=== PATIENT | male | born 1950 | race Caucasian/White ===

== ENCOUNTER 2025-03-31 15:39 | Outpatient (AMB) | payer MEDICARE, OTHER, SELFPAY ==
--- NOTE | 2025-03-31 15:41 | AM.OFFWIN_ITS ---
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 - The injury occurred four days ago when the patient tripped over a belt on the floor, causing the left foot to flex significantly. - The patient reports significant bruisi ng and tenderness in the joint area of the big toe of the left foot. - There is a suspicion of a fracture due to the presence of blood in the area, although no prior imaging has been conducted. - The patient has not wrapped the foot o r used any supportive devices since the injury. - he has been taking ibuprofen and ice, the pain continues. - Pain is worse when flexing foot Physical Exam General: Cooperative, healthy appearing, comfortable, no acute distress and well developed Orientation: Patient oriented x3 Limitations: No limitations Head: Normal to inspection Ears: Hearing grossly normal bilaterally Nose: Normal External nose present Face and sinus: Normal facial exam Mouth: normal, moist oral mucosa Eyes: Appearance normal, both eyes and all related structures Neck: Normal visual inspection and Yes full ROM Respiratory: Normal respiratory effort and able to speak in complete sentences. Skin: no rashes or lesions noted Neuro: Patient oriented x3 Extremities: moving all extremities normally, left lateral dorsal aspect of left foot has significant ecchymosis, TTP on MTP, NVI all toes, ROM full all toes, RO M normal left foot. PFSH Social History Patient Tobacco Use Status: Former Tobacco user Review of Systems Const All systems reviewed & are unremarkable except as noted in HPI and below Physical Exam Vital Signs: Last Vital Signs Temp 98.3 F 03/31/25 15:43 Pulse 82 03/31/25 15:43 BP 114/62 03/31/25 15:43 Pulse Ox 97 03/31/25 15:43 Oxygen Delivery Method Room Air 03/31/25 15:43 BMI result Body Mass Index 26.0 Assessment & Plan Assessment & Plan (1) Acute foot pain: Code(s): M79.673 - Pain in unspecified foot Qualifiers: Laterality: left Qualified Code(s): M79.672 - Pain in left foot Plan: Patient was informed and verbally consented to the use of an ambient scribe for clinic note documentation during this visit 1. Acute Foot Pain - Plan to obtain an x-ray of the left foot to assess for possible fracture. - My intepretation of XR is possible sesamoid bone fx however Rads read was no acute fx or other issue. - Gave patient a postoperative shoe or boot to minimize pain and prevent further injury. Advised to wean off over the next few weeks and do twice daily ROM excercises. -Rest, Ice, ibuprofen. (2) Injury of foot, left: Code(s): S99.922A - Unspecified injury of left foot, initial encounter Qualifiers: Encounter type: initial encounter Qualified Code(s): S99.922A - Unspecified injury of left foot, initial encounter Plan: as above Orders: Orders XR foot LT min 3V Today M79.673 - Pain in unspecified foot, S99.922A - Unspecified injury of left foot, initial encounter Coding Level of Care Code New Pt Level 4 (96247) Diagnoses Acute pain of left foot M79.672 Laterality: left Injury of left foot, initial encounter S99.922A Encounter type: initial encounter
[2025-03-31 15:43] VITALS: BP 114/62; PULSE 82; TEMP 36.8; O2SAT 97; BMI 26.0
== END 2025-03-31 16:43 | disposition home or self-care (01) ==
PROVIDERS: Visit Provider Physician Assistant
DX: M79.672 Pain in left foot (principal); S99.922A Unspecified injury of left foot, initial encounter

== ENCOUNTER 2025-03-31 15:39 | Outpatient (REF) | payer MEDICARE, OTHER, SELFPAY ==
--- NOTE | ~2025-03-31 | XR_ITS ---
EXAMINATION: XR FOOT, LEFT CLINICAL INFORMATION: M79.673 - Pain in unspecified foot COMPARISON: None available. TECHNIQUE: AP, lateral, and oblique views of the left foot. FINDINGS: There is mild osteopenia. There is no fracture, dislocation, or suspicious bone lesion. There is normal alignment. There is a healed fracture of the proximal phalanx of the fifth digit. There are mild degenerative changes in the first MTP joint, interphalangeal joints, and intertarsal joints. There is mild flattening of the normal plantar arch. There are mild degenerative changes in the ankle joint and subtalar joints. There is a small plantar calcaneal spur. There is no soft tissue abnormality. XR/XR foot LT min 3V IMPRESSION: No acute findings of the left foot. Electronically signed by: Dawson Rogers MD 03/31/2025 04:23 PM EDT
--- OUTSIDE RECORDS SUMMARY | 2025-03-31 16:02 | XMS_ITS | Patient Health Record ---
Author Organization [facility] [email or web address] [facility] Address [address] [place] [address] Care Team Providers Care Inlayer Name Role Phone Yong Becker Primary Care Provider Yanira, Milvia Unavailable [phone] Ajay III, Desmond Unavailable [phone] Allergies No Known Allergies Results Component Value Reference Range Notes CBC (INCLUDES DIFF/PLT) Reviewed date:08/23/2024 12:03:24 PM Interpretation: Performing Lab:[place], [facility]-[id number] [place] [facility], [id number] [address] DR[address] Alison Parisi Notes/Report: FASTING FASTING FASTING WHITE BLOOD CELL COUNT 6.5 3.8-10.8 Thousand/ uL RED BLOOD CELL COUNT 5.52 4.20-5.80 Million/uL HEMOGLOBIN 17.0 13.2-17.1 g/dL HEMATOCRIT 51.6 38.5-50.0 % MCV 93.5 80.0-100.0 fL MCH 30.8 27.0-33.0 pg MCHC 32.9 32.0-36.0 g/dL not clinically significant; however, it should be value (in the range of 30 to 32 g/dL) is most likely red cell parameters and the patient's clinical For adults, a slight decrease in the calculated MCHC condition. interpreted with caution in correlation with other RDW 12.7 11.0-15.0 % PLATELET COUNT 193 140-400 Thousand/uL MPV 10.2 7.5-12.5 fL ABSOLUTE NEUTROPHILS [phone] cells/uL ABSOLUTE LYMPHOCYTES 1735 705-3146 cells/uL ABSOLUTE MONOCYTES 637 200-950 cells/uL ABSOLUTE EOSINOPHILS 221 15-500 cells/uL ABSOLUTE BASOPHILS 72 0-200 cells/uL NEUTROPHILS 55.4 LYMPHOCYTES 30.3 MONOCYTES 9.8 EOSINOPHILS 3.4 BASOPHILS 1.1 COMPREHENSIVE METABOLIC PANE L Reviewed date:08/24/2024 02:25:36 PM Interpretation: Performing Lab:[facility] [facility] [employer] [facility]-[id number] [place] [facility], [id number] [address] DR[address] Alison Parisi Notes/Report: FASTING FASTING FASTING GLUCOSE 81 65-99 mg/dL Fasting referen ce interval UREA NITROGEN (BUN) 17 7-25 mg/dL CREATININE 0.81 0.70-1.28 mg/dL EGFR 92 > OR = 60 mL/min/1.73m2 BUN/CREATININE RATIO SEE NOTE: 6-22 (calc) reference range. Not Reported: BUN and Creatinine are within SODIUM 139 135-146 mmol/L POTASSIUM 4.7 3.5-5.3 mmol/L CHLORIDE 101 98-110 mmol/L CARBON DIOXIDE 29 20-32 mmol/L CALCIUM 9.5 8.6-10.3 mg/dL PROTEIN, TOTAL 6.8 6.1-8.1 g/dL ALBUMIN 4.4 3.6-5.1 g/dL GLOBULIN 2.4 1.9-3.7 g/dL (calc) ALBUMIN/GLOBULIN RATIO 1.8 1.0-2.5 (calc) BILIRUBIN, TOTAL 0.9 0.2-1.2 mg/dL ALKALINE PHOSPHATASE 73 35-144 U/L AST 19 10-35 U/L ALT 21 9-46 U/L LIPID PANEL Reviewed date:08/24/2024 02:25:36 PM Interpretation: Performing Lab:[facility]-[id number], [id number] [address] DR[address] Alison Parisi Notes/Report: FASTING FASTING FASTING CHOLESTEROL, TOTAL 123 <200 mg/dL HDL CHOLESTEROL 42 > OR = 40 mg/dL TRIGLYCERIDES 66 <150 mg/dL LDL-CHOLESTEROL 66 Reference range: <100 LDL-C is now calculated using the Bharathi-Armas with > or = 2 CHD risk factors. (http://education.Physician Software Systems/faq/RCV193) Bharathi SS et al. ESE. 2013;310(19): 4986-0719 <70 mg/dL for patients with CHD or diabetic patients better accuracy than the Friedewald equation in the calculation, which is a validated novel method providing Desirable range <100 mg/dL for primary prevention; estimation of LDL-C. CHOL/HDLC RATIO 2.9 <5.0 (calc) NON HDL CHOLESTEROL 81 <130 mg/dL (calc) For patients with diabetes plus 1 major ASCVD risk (LDL-C of <70 mg/dL) is considered a therapeutic factor, treating to a non-HDL-C goal of <100 mg/dL option. PSA, TOTAL WITH REFLEX TO PS A, FREE (REFL) Reviewed date:08/24/2024 02:25:36 PM Interpretation: Performing Lab:[facility]-[id number] [facility], [id number]- [address] Alison Parisi Notes/Report: FASTING PSA, TOTAL 1.1 < OR = 4.0 ng/mL standardized against the equimolar PSA standard. assay methods cannot be used interchangeably. PSA absence of disease. The Total PSA value from this assay system is levels, regardless of value, should not be PSA was performed using the Nurys Den (Siemens assay). Comparison of serial PSA results should be interpreted with this fact in mind. The test result will be approximately 20% higher when compared to the WHO-standardized Total PSA interpreted as absolute evidence of the presence or Immunoassay method. Values obtained from different Reason For Referral No Information Medications Medication SIG (Take, Route, Frequency, Duration) Notes Start Date End Date Status Tadalafil 10 MG 1 tablet as needed Orally Once a day for 30 days 09/05/2024 Active Fluticasone Propionate 50 MCG/ACT SPRAY SPRAY 1 SPRAY INTO EACH NOSTRIL EVERY DAY FOR 30 DAYS Nasally Twice a day for 90 days Active LORazepam 1 MG 1 tablet at bedtime as needed Orally Once a day for 30 days prn 03/22/2024 Active Metoprolol Succinate ER 25 MG 1 tablet Orally Once a day Active Meloxicam 15 MG TAKE 1 TABLET BY JARAD TH EVERY DAY Oral for 30 Days Not-Taking Atorvastatin Calcium 40 MG 1 tablet Orally Once a day Active Lisinopril 10 MG 1 tablet Orally Once a day Active Immunizations Vaccine Route Administration Date Status Comme nts Administered Elsewhere, COVI D-19 Spikevax Unknown 07/21/2024 Administered Administered Elsewhere, RSV Arexvy Unknown 09/11/2023 A dministered COVID-19 Vaccine Moderna 1st dose Unknown 07/14/2021 Ad ministered COVID-19 Vaccine Moderna 1st dose Unknown 12/23/2021 Ad ministered Influenza (Fluad), inactivat ed (IIV), subunit, adjuvanted, for intramuscular use Unknown 05/22/2024 Administered Social History Tobacco Use: Social History Observation Description Date Details (start date - stop date) Former Smoker NA - NA Tobacco Use/Smoking Question Answer Notes Are you a nonsmoker Alcohol Screen (Audit C) Question Answer Notes Did you have a drink contain ing alcohol in the past year? Yes How often did you have a dri nk containing alcohol in the past year? 4 or more times a week (4 points) How many drinks did you have on a typical day when you were drinking in the past year? 1 or 2 drinks (0 point) How often did you have 6 or more drinks on one occasion in the past year? Never (0 point) Points 4 Interpretation Positive Sexual History Question Answer Notes Had sex in the past 12 months (vaginal, oral, or anal)? No (patient Portal Have you ever had a Sexually transmitted disease ? No (patient Portal Tobacco Control (Standard) Question Answer Notes Tobacco use: Former smoker How long has it been since you last smoked? Hortenciaa ter than 10 years Section Notes: Screenings done by Chela Muñoz 08/14/2021 11:03:20 AM > Brandon Guerrero 08/12/2022 09:39:43 AM > Screenings done by Chela Muñoz 08/14/2021 11:03:20 AM > Screenings done by Chela Muñoz 08/14/2021 11:03:20 AM > Brandon Guerrero 08/12/2022 09:39:43 AM > Screenings done by Chela Muñoz 08/14/2021 11:03:20 AM > Brandon Guerrero 08/12/2022 09:39:43 AM > Screenings done by Chela Muñoz 08/14/2021 11:03:20 AM > Screenings done by Chela Muñoz 08/14/2021 11:03:20 AM > Screenings done by Chela Muñoz 08/14/2021 11:03:20 AM > Screenings done by Chela Muñoz 08/14/2021 11:03:20 AM > Screenings done by Chela Muñoz 08/14/2021 11:03:20 AM > Brandon Guerrero 08/12/2022 09:39:43 AM > Problems Problem Type SNOMED Code ICD Code Onset Dates Problem Status W/U Status Risk Notes Problem Mixed hyperlipidemia (850066313) Mixed hyperlipidemia (E78.2) Active confirmed Problem Insomnia (987848049) Insomnia, unspecified (G47.00) Active confirmed Problem Sedative, hypnotic or anxiolytic dependence, 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 Problem 744948253 Chronic kidney disease, stage 1 (N18.1) Inactive confirmed Problem Seasonal allergic rhinitis (322468630) Seasonal allergic rhinitis, unspecified trigger (J30.2) Active confirmed Problem Essential hypertension (32729369) Essential hypertension (I10) Active confirmed Problem Cataract (587378958) Cataract (H26.9) Active confirmed Problem 774391878 Erectile disorde r (N52.9) Active confirmed Vital Signs Heart Rate 72 /min 09/05/2024 Corey Belcher 09/05/2024 08:42:24 AM EST > Temperature 97.9 degrees Fahrenheit 09/05/2024 Florencia Díaz 09/05/2024 08:42:24 AM EST > Respiratory Rate 16 /min 09/05/2024 Florencia Belcher 09/05/2024 08:42:24 AM EST > Blood pressure diastolic 67 mm Hg 09/05/2024 Florencia Muhammad 09/05/2024 08:42:24 AM EST > Oximetry 97 % 09/05/2024 Corey Belcher 09/05/2024 08:42:24 AM EST > Height 72 inches 09/05/2024 Corey Belcher 09/05/2024 08:42:24 AM EST > Blood pressure systolic 116 mm Hg 09/05/2024 Florencia Díaz 09/05/2024 08:42:24 AM EST > Weight 191 lbs 09/05/2024 Corey Belcher 09/05/2024 08:42:24 AM EST > BMI 25.9 kg/m2 09/05/2024 Corey Belcher 09/05/2024 08:42:24 AM EST > Encounters Encounter Location Date Provider [facility] [address] [place] [address] 09/05/2024 Milvia Doyle Mixed hyperlipidemia E78.2 ; Essential hypertension I10 ; Seasonal allergic rhinitis, unspecified trigger J30.2 ; Erectile disorder N52.9 ; Cataract H26.9 and Insomnia, unspecified G47.00 [facility] [address] [place] [address] [address] [place] [address] 08/22/2024 Desmond Ajay III Mixed hyperlipidemia E78.2 and Screening for prostate cancer Z12.5 Assessments Encounter Date Diagnosis (ICD Code) Assessment Notes Treatment Notes Treatment Clinical Notes Section Notes 09/05/2024 Mixed hyperlipidemia (ICD-10 - E78.2) Stable on Atorvastatin Calcium 40 MG Tablet 1 tablet Orally Once a day. Lipid panel reviewed, all at goal. 09/05/2024 Essential hypertension (ICD-10 - I10) Stable on Lisinopril 10 MG Tablet 1 tablet Orally Once a day, Metoprolol Succinate ER 25 MG Tablet Extended Release 24 Hour 1 tablet Orally Once a day. cont present management. Low salt diet, DASH diet, reduced saturated fat, Lifestyle interventions. 08/22/2024 Mixed hyperlipidemia (ICD-10 - E78.2) 08/22/2024 Screening for prostate cancer (ICD-10 - Z12.5) 09/05/2024 Seasonal allergic rhinitis, unspecified trigger (ICD-10 - J30.2) Stable. Refill sent for Fluticasone Propionate 50 MCG/ACT Suspension SPRAY SPRAY 1 SPRAY INTO EACH NOSTRIL EVERY DAY FOR 30 DAYS Nasally Twice a day. Instructed to avoid allergy triggers, Avoid yard work because it can stir up both pollen and mold. Avoid smoking or allow others to smoke around you Avoid use aerosol sprays, cleaning products, or perfumes. If pollen is one of your triggers, close your house and car windows during blooming season. Clean your house often to control dust. Keep pets outside. 09/05/2024 Erectile disorder (ICD-10 - N52.9) Start Tadalafil 10 MG Tablet 1 tablet as needed Orally Once a day. Educated about side effects of medications and interactions with other drugs including nitrates - pt verbalizes understanding. 09/05/2024 Cataract (ICD-10 - H26.9) Stable. Patient had cataract surgery 09/05/2024 Insomnia, unspecified (ICD-10 - G47.00) Stable on Lorazepam. Discussed with pt lifestyle changes to improve sleep. Avoid caffeine, alcohol, and eating for at least 2 hours prior to bedtime. Avoid TV just before bedtime, and start exercise walking daily as tolerated with goal of 45 min/day. 09/05/2024 Other I have reviewed and updated the HPI, Current Medications, PFSH, ROS, and Preventive Medicine Screening done by ancillary staff. Patient was given a personalized prevention plan. Plan Of Treatment No Information Insurance Providers Payer Name Payer Address Payer Phone Subscriber Number Group Number Insured Name Patient Relationship to Insured Coverage Start Date Coverage End Date [place]ICARE [place] F[place] M[place]. [address] [place] [address] [id number] [employer] Self - patient is the insured 4 [facility] [employer] [address] [place] [address] [phone] [id number] 3 [employer] Self - patient is the insured 3 Medical (General) History Medical History History ICD Code Essential hypertension I10 Hyperlipidemia, mixed E78.2 Insomnia, unspecified G47.00 Seasonal allergic rhinitis, unspecified trigger J30.2 Surgical History Surgery Date(Month/Year) bilateral rotator cuff shoulder
== END 2025-03-31 15:40 | disposition home or self-care (01) ==
LOC: HO.HMGCX 15:39
PROVIDERS: Visit Provider Physician Assistant
DX: S99.922A Unspecified injury of left foot, initial encounter (principal); W18.41XA Slipping, tripping and stumbling without falling due to stepping on object, initial encounter; Y93.9 Activity, unspecified; Y92.9 Unspecified place or not applicable
CPT/HCPCS: 73630; 99202

== ENCOUNTER → 2025-03-31 16:02 | Outpatient (BNV) | payer MEDICARE, OTHER, SELFPAY | PROVIDERS: Visit Provider Radiology Diagnostic Radiology | DX: M79.672 Pain in left foot (principal) | CPT/HCPCS: 73630 ==

== ENCOUNTER 2025-05-12 14:20 | Outpatient (AMB) | payer MEDICARE, OTHER, SELFPAY ==
--- OUTSIDE RECORDS SUMMARY | 2025-05-12 14:23 | XMS_ITS | Patient Health Record ---
Author Organization [facility] [employer] [facility] Address [address] [place] [address] Care Team Providers Care Distribution Associate Name Role Phone Yong Becker Primary Care Provider Yanira, Milvia Unavailable [phone] Ajay III, Desmond Unavailable [phone] Allergies No Known Allergies Results Component Value Reference Range Notes CBC (INCLUDES DIFF/PLT) Reviewed date:08/23/2024 12:03:24 PM Interpretation: Performing Lab:[place], [email or web address]-[id number] [place] [facility], [id number] [address] Alison Parisi Notes/Report: FASTING FASTING FASTING WHITE BLOOD CELL COUNT 6.5 3.8-10.8 Thousand/ uL RED BLOOD CELL COUNT 5.52 4.20-5.80 Million/uL HEMOGLOBIN 17.0 13.2-17.1 g/dL HEMATOCRIT 51.6 38.5-50.0 % MCV 93.5 80.0-100.0 fL MCH 30.8 27.0-33.0 pg MCHC 32.9 32.0-36.0 g/dL value (in the range of 30 to 32 g/dL) is most likely red cell parameters and the patient's clinical For adults, a slight decrease in the calculated MCHC not clinically significant; however, it should be condition. interpreted with caution in correlation with other RDW 12.7 11.0-15.0 % PLATELET COUNT 193 140-400 Thousand/uL MPV 10.2 7.5-12.5 fL ABSOLUTE NEUTROPHILS 3601 0138-6404 cells/uL ABSOLUTE LYMPHOCYTES 7399 027-0029 cells/uL ABSOLUTE MONOCYTES 637 200-950 cells/uL ABSOLUTE EOSINOPHILS 221 15-500 cells/uL ABSOLUTE BASOPHILS 72 0-200 cells/uL NEUTROPHILS 55.4 LYMPHOCYTES 30.3 MONOCYTES 9.8 EOSINOPHILS 3.4 BASOPHILS 1.1 COMPREHENSIVE METABOLIC PANE L Reviewed date:08/24/2024 02:25:36 PM Interpretation: Performing Lab:[employer] [facility]-[id number] [place] [facility], [id number] [address] DR[address] Alison Parisi Notes/Report: FASTING FASTING FASTING GLUCOSE 81 65-99 mg/dL Fasting reference interval UREA NITROGEN (BUN) 17 7-25 mg/dL [...] PANEL Reviewed date:08/24/2024 02:25:36 PM Interpretation: Performing Lab:[facility]-[id number], [id number] [address] Alison Parisi Notes/Report: FASTING FASTING FASTING CHOLESTEROL, TOTAL 123 <200 mg/dL HDL CHOLESTEROL 42 > OR = 40 mg/dL TRIGLYCERIDES 66 <150 mg/dL LDL-CHOLESTEROL 66 Reference range: <100 estimation of LDL-C. (http://education.Architizer/faq/UXI095) <70 mg/dL for patients with CHD or diabetic patients LDL-C is now calculated using the Russell with > or = 2 CHD risk factors. Bharathi DURBIN et al. ESE. 2013;310(84): 4360-5067 calculation, which is a validated novel method providing better accuracy than the Friedewald equation in the Desirable range <100 mg/dL for primary prevention; CHOL/HDLC RATIO 2.9 <5.0 (calc) NON HDL CHOLESTEROL 81 <130 mg/dL (calc) (LDL-C of <70 mg/dL) is considered a therapeutic For patients with diabetes plus 1 major ASCVD risk factor, treating to a non-HDL-C goal of <100 mg/dL option. PSA, TOTAL WITH REFLEX TO PS A, FREE (REFL) Reviewed date:08/24/2024 02:25:36 PM Interpretation: Performing Lab:[place], [facility]-[id number] [place] [facility], [id number] [address] DR[address] Alison Parisi Notes/Report: FASTING PSA, TOTAL 1.1 < OR = 4.0 ng/mL interpreted as absolute evidence of the presence or should be interpreted with this fact in mind. levels, regardless of value, should not be absence of disease. assay methods cannot be used interchangeably. PSA standardized against the equimolar PSA standard. The Total PSA value from this assay system is PSA was performed using the Nurys Alpine (Siemens assay). Comparison of serial PSA results when compared to the WHO-standardized Total PSA The test result will be approximately 20% higher Immunoassay method. 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 Problem 192683054 Chronic kidney disease, stage 1 (N18.1) Inactive confirmed Problem Seasonal allergic rhinitis (383025084) Seasonal allergic rhinitis, unspecified trigger (J30.2) Active confirmed Problem Essential hypertension (37189805) Essential hypertension (I10) Active confirmed Problem Cataract (170812411) Cataract (H26.9) Active confirmed Problem 436540788 Erectile disorde r (N52.9) Active confirmed Vital [...] > Encounters Encounter Location Date Provider Diagnosis [facility] [address] [facility] [address] [place] [address] 08/22/2024 Desmond Moss III Mixed hyperlipidemia E78.2 and Screening for prostate cancer Z12.5 [facility] [address] [facility] [address] [place] [address] 09/05/2024 Milvia Doyle Mixed hyperlipidemia E78.2 ; Essential hypertension I10 ; Seasonal allergic rhinitis, unspecified trigger J30.2 ; Erectile disorder N52.9 ; Cataract H26.9 and Insomnia, unspecified G47.00 Assessments Encounter Date Diagnosis (ICD Code) Assessment [...] MEDICARE [place] FFS MCR. [address] [place] [address] [id number] [employer] Self - patient is the insured 4 [facility] [employer] [address] [place] [address] [id number] 3 [employer] Self - patient is the insured 3 Medical (General) History Medical History History ICD Code Essential hypertension I10 Hyperlipidemia, mixed E78.2 Insomnia, unspecified G47.00 Seasonal allergic rhinitis, unspecified trigger J30.2 Surgical History Surgery Date(Month/Year) bilateral rotator cuff shoulder
--- OUTSIDE RECORDS SUMMARY | 2025-05-12 14:23 | XMS_ITS | Clinical Summary ---
Author Organization [facility] Address [address] [place] [address] Care Team Providers Care Belt Loop Maker Name Role Phone Desmond Moss DO Primary Care Provider [phone] Allergies No known active allergies Medications meloxicam (MOBIC) 15 MG tablet TAKE 1 TABLET BY MOUTH EVERY DAY 90 tablet 1 09/17/2023 Active atorvastatin (LIPITOR) 40 MG tablet Take ONE tablet (40 mg total) by mouth once daily. Active cholecalciferol , vitamin D3, 50 mcg (2,000 unit) capsule as directed Orally Active lisinopriL (PRINIVIL) 10 MG tablet Take ONE tablet (10 mg total) by mouth once daily. 09/28/2024 Active metoprolol succinate XL (TOPROL-XL) 25 MG extended release tablet TAKE 1 TABLET (25 MG TOTAL) BY MOUTH DAILY. Active tadalafiL (CIALIS) 10 MG tablet TAKE 1 TABLET BY MOUTH EVERY DAY NEEDED FOR 30 DAYS Active Active Problems No known active problems Social History Tobacco Use Types Packs/Day Years Used Date Smoking Tobacco: Former Cigarettes 1 15 Smokeless Tobacco: Never Alcohol Use Standard Drinks/Week Comments Yes 7 (1 standard drink = 0.6 oz pur e alcohol) Sex and Gender Information Value Date Recorded Sex Assigned at Male 08/19/2023 11:42 AM EST Legal Sex Male 11:21 AM EDT Gender Identity Male 08/19/2023 11:42 AM EST Sexual Orientation Straight 08/19/2023 11 :42 AM EST Last Filed Vital Signs Vital Sign Reading Time Taken Comments Blood Pressure - - Pulse - - Temperature - - Respiratory Rate - - Oxygen Saturation - - Inhaled Oxygen Concentration - - Weight 88.5 kg (195 lb) 01/24/2021 11:37 AM EDT Height 182.9 cm (6') 12/30/2024 10:18 AM EDT Body Mass Index 26.45 01/24/2021 11:37 AM EDT Plan of Treatment Health Maintenance Due Date Last Done Comments PNEUMOCOCCAL POLYSACCHARIDE VACCINE AGE 65 AND OVER 2014 COVID-19 Vaccine (2023-2 5 season) 2024 INFLUENZA VACCINE 05/22/2025 06/07/2022, , 06/18/2021, Additional history exists Insurance [facility] MEDICARE [facility] MEDICARE [facility] MEDICARE [employer] [facility] [facility] [employer] [place] [employer] [facility] MEDICARE [employer] MEDICARE [facility] [place] [phone] [place] [facility] MEDICARE [facility] MEDICARE [facility] MEDIC[facility] MEDICARE [facility] MEDICARE [facility] [employer] [place] [employer] [place] [facility] [facility] MEDICARE [facility] [employer] [employer] [place] [facility] [place] [phone] [place] [facility] MEDICARE [facility] [place] [phone] [facility] [place] [phone] [place] [facility] [employer] [employer] [place] [employer] [place] [facility] MEDICARE [facility] MEDICARE [facility] MEDICARE [facility] MEDICARE [facility]UMAN [facility] MEDICARE [place] [facility] [facility] [facility] MEDICARE [facility] HUMAN [facility] [facility] [facility] [place] [facility] [place] [facility] MEDICARE [facility]UMAN [facility] [facility] [facility] [place] MEDIC[facility] [place] [facility] MED[facility]ARE [facility] [facility] [facility] MEDICARE [facility] MEDICARE [facility]UMAN [facility] [facility] MED[facility] [place] MED[facility] [place] [facility] MED[facility]ARE [facility] MEDICARE [facility]UMAN [facility]AN [facility] [facility] [place] [phone] [place] [facility] MEDICARE [facility] MEDICARE [facility] MEDICARE [facility] MEDICARE [facility] MEDICARE [facility] MEDICARE [place] [facility] MEDICARE HUMAN [facility]UMAN [facility] [facility] [facility] MEDICARE [facility] MEDICARE [facility] MEDICARE [place] [employer]IC[employer] [place] MEDICARE [facility] [place] [phone] [facility] [address] [place] [facility] MEDICARE [place] [facility] HUMAN [facility] MEDICARE [place] MEDICARE [place] MEDICARE [place] [facility] [place] [phone] HUMAN [facility] MEDICARE [facility] [place] [phone] [facility] [phone] [place] [facility] [place] MEDICARE [place] [facility]UMAN [facility] [employer] MED[employer] [place] Care Teams Belt Loop Maker Relationship Specialty Start Date End Date Desmond Moss DO [address] [place] [address] Dr Hernandez [address] [place] [address] [place] [address] PCP - General Family Medicine 08/19/23
--- OUTSIDE RECORDS SUMMARY | 2025-05-12 14:23 | XMS_ITS | Encounter Summary ---
Author Organization [facility] Address [address] [place] [address] Phone Care Team Providers Care Processing Inspector Name Role Phone Shawn Rooney MD Unavailable Saskia Blackwell FIELD OPERATIONS FARM MANAGER Unavailable [phone] Criss Doll YOUTH CARE WORKER Unavailable Yraeli Duenas MD Unavailable Clifton Nogueira MD Unavailable [phone] Allen Rooney MD Unavailable [phone] Alison Leon MD Unavailable [phone] Sherif Daley MD Unavailable Ismael Salas MD Unavailable Regina Wilson MD Unavailable Norma García MD Unavailable [phone] Shawn Rooney MD Primary Care Provider Shawn Rooney MD Unavailable Shawn Rooney MD Unavailable Ninoska Upton [facility] Primary Care Provider [phone] Caitlin Coto MD Primary Care Provider Encounter Details Date Type Department Care Team (Late st Contact Info) Description 06/11/2020 Procedure Pass [facility] Endoscopy Admitting Dept Virtual Department [address] [place] [address] Social History Tobacco Use Types Packs/Day Years Used Date Smoking Tobacco: Former Cigarettes 0.5 40 0 02/24/1975 - 02/24/2015 Smokeless Tobacco: Never Alcohol Use Standard Drinks/Week Comments Yes 3 (1 standard drink = 0.6 oz pur e alcohol) 3 x week Sex and Gender Information Value Date Recorded Sex Assigned at Male 01/20/2022 12:55 PM EDT Legal Sex Male 10:04 PM EDT Gender Identity Male 01/20/2022 12:55 PM EDT Sexual Orientation Straight 01/20/2022 12 :55 PM EDT documented as of this encounter Plan of Treatment Upcoming Encounters Date Type Department Care Team (Late Contact Info) Description 06/05/2025 9:30 AM EDT Office Visit [facility] [address] [place] [address] Caitlin Coto MD [address] [facility] [address] [place] [address] [email or web address] documented as of this encounter Visit Diagnoses Not on filedocumented in this encounter Additional Health Concerns Infection Onset Date Last Indicated Resolved Time CoV-Presumed 09/12/2022 09/12/2022 10/03/2022 1:21 AM EST Assessment Noted Time PHQ-2 Depression Total Score: 0 03/18/20 18 10:01 AM EDT documented as of this encounter Care Teams Processing Inspector Relationship Specialty Start Date End Date Shawn Rooney MD [address] [place] [address]. [address] [place] [phone] [email or web address] PCP - General 07/13/17 01/22/22 Ninoska Upton FNP [address] [facility] [address] [place] [address] PCP - General Family Medicine 01/23/22 03/24/22 Caitlin Coto MD [address] [place] [address] [address] [place] [phone] [email or web address] PCP - General Family Medicine 03/25/22 Shawn Rooney MD [address] [place] [address] [address] [place] [phone] [email or web address] Historical LMR Provider 07/12/17 Saskia Blackwell NP [address] [place] [address] Historical LMR Provider 07/12/17 2 Criss Doll CNP [address] [place] [address] Historical LMR Provider 07/12/17 Yareli Duenas MD [address] [place] [address] Historical LMR Provider 07/12/17 Clifton Nogueira MD [address] [place] [address] Historical LMR Provider 07/12/17 09/28/21 Allen Rooney MD [address] [place] [address] [address] [place] [phone] [email or web address] Historical LMR Provider 07/12/17 09/28/21 Alison Leon MD [address] [place] [address] 7 [place] [id number] [email or web address] Historical LMR Provider 07/12/17 09/28/21 Sherif Daley MD [address] [place] [address] 7 [place] [id number] [email or web address] Historical LMR Provider 07/12/17 Ismael Salas MD [address] [place] [address] 7 [place] [phone] Historical LMR Provider 07/12/17 2 Regina Wilson MD [address] [place] [address] Orthopedics & Sports Medicine, [facility] [place] [address] [email or web address] Historical LMR Provider 07/12/17 Norma García MD [address] [place] [address] 7 [place] [id number] [email or web address] Historical LMR Provider 07/12/17 09/28/21 Shawn Rooney MD [address] [place] [address] [address] [place] [phone] [email or web address] Insurance Assigned Provider 08/22/17 09/29/20 Shawn Rooney MD [address] [place] [address] [address] [place] [id number] [email or web address] Assigned Provider 12/28/21 09/27/22 documented as of this encounter Additional Source Comments The information contained in this document represents components of the legal health record. It is not the complete legal health record.[facility]
[2025-05-12 14:51] VITALS: BP 100/50; PULSE 79; TEMP 36.6; O2SAT 97; BMI 26.3
--- NOTE | 2025-05-12 14:51 | AM.OFFWIN_ITS ---
Intake Vital Signs 05/12/25 14:51 Height 6 ft 1 in Weight 199 lb BMI 26.3 BP 100/50 L Blood Pressure Location Lt brachial Position Sitting Pulse 79 Pulse Source Pulse Oximeter Temp 97.9 F Temp Source Oral Pulse Oximetry (%) 97 Oxygen Delivery Method Room Air Intake Visit Reasons: EP-rt elbow bug bite/sore & itchy Intake Note: pt presents with right elbow pain and itchy for 1 day Patient Tobacco Use Status: Former Tobacco user Allergies No Known Allergies Allergy (Verified 05/12/25 14:54) Do you need a note to return to daycare/school/sports/work: No HPI HPI Comments History of Present Illness Details History - The patient is a 75-year-old male pres enting with right elbow pain and swelling due to an insect bite. - The issue began approximately 24 hours ago when the patient was bitten by an unknown insect while sitting on a couch inside his house. - Initially, the bite was itchy, and the patient took Benadryl to manage the symptoms. - Over time, the site became sore and de veloped erythema to the elbow and arm. - The patient denies any fever but repor ts significant discomfort and sensitivity at the site. - There is no visible stinger, but fluid accumulation is noted at the site of the bite. - He denies fever, chills, chest pain, S OB, numbness, tingling, discharge, or drainage. Physical Exam General: Cooperative, healthy appearing, comfortable, no acute distress and well developed Orientation: Patient oriented x3 Limitations: No limitations Respiratory: Normal respiratory effort and able to speak in complete sentences. Skin: Erythema noted to the right elbow with some spreading to the lower and upper arm. Mild swelling noted. No fluctuance noted. Musculoskeletal: FROM of the right shoulder, elbow and wrist. TTP of the medial or lateral elbow and olecranon. Supination and pronation is intact. Hand furniture decals inspector is intact. Neuro: Sensation is intact. Patient was informed and verbally consented to the use of an ambient scribe for clinic note documentation during this visit. PFSH Social History Patient Tobacco Use Status: Former Tobacco user Review of Systems Const All systems reviewed & are unremarkable except as noted in HPI and below Physical Exam Vital Signs: Last Vital Signs Temp 97.9 F 05/12/25 14:51 Pulse 79 05/12/25 14:51 BP 100/50 L 05/12/25 14:51 Pulse Ox 97 05/12/25 14:51 Oxygen Delivery Method Room Air 05/12/25 14:51 BMI result Body Mass Index 26.3 Assessment & Plan Assessment & Plan (1) Right arm cellulitis: Code(s): L03.113 - Cellulitis of right upper limb Plan Most likely cellulitis after a bug bite Plan - Initiate treatment with doxycycline, with caution advised regarding sun exposure due to potential photosensitivity. - Prescribe a five-day course of prednisone to reduce inflammation and itching. - Advise monitoring for increased redness, fever, or chills, and to seek further medical attention if symptoms worsen. - Manage symptoms with antihistamines such as Benadryl for itching. - Monitor for signs of infection or worsening symptoms. Medications: New doxycycline hyclate 100 mg PO BID 14 tabs 0RF prednisone 40 mg (2 x 20 mg) PO DAILY 10 tabs 0RF 5 days Coding Level of Care Code Est Pt Level 3 (84403) Diagnoses Right arm cellulitis L03.113
== END 2025-05-12 15:32 | disposition home or self-care (01) ==
PROVIDERS: Visit Provider Physician Assistant Medical
DX: L03.113 Cellulitis of right upper limb (principal)

== ENCOUNTER → 2025-05-12 14:20 | Outpatient (BNVA) | payer MEDICARE, OTHER, SELFPAY | PROVIDERS: Visit Provider Physician Assistant Medical | DX: L03.113 Cellulitis of right upper limb (principal) | CPT/HCPCS: 99212 ==